=== PATIENT | male | born 1950 | race Caucasian/White ===

== ENCOUNTER 2022-05-01 21:25 | Observation (INO) ==
[2022-05-01] MEDS ORDERED: ONDANSETRON INJ 2 MG/ML 2 ML VIAL IV STA (21:54)
[2022-05-01] MEDS ORDERED: MoRPHine SULFATE 4 MG/ML 1 ML CARP\\VIAL IV STA (21:54)
[2022-05-01 22:21] LABS: Basophils # (auto) 0.05 K/uL (0-0.2); Basophils % (auto) 0.5 %; Eosinophils # (auto) 0.08 K/uL (0-0.50); Eosinophils % (auto) 0.8 %; Hematocrit (blood only) 40.2 % (40.1-51.0); Immature Granulocytes # (auto) 0.03 K/uL (0.00-0.02); Immature Granulocytes % (auto) 0.3 %; Lymphocytes # (auto) 1.42 K/uL (1.2-3.4); Mean Corpuscular Hemoglobin 31.3 pg (25.0-34.0); Mean Corpuscular Hgb Conc 34.8 g/dL (32.0-36.0); Mean Corpuscular Volume 89.9 fL (80.0-100.0); Mean Platelet Volume 12.1 fL (9.4-12.4); Monocytes # (auto) 0.91 K/uL (0.24-0.82); Monocytes % (auto) 9.6 %; Neutrophils # (auto) 6.98 K/uL (1.4-6.5); Neutrophils % (auto) 73.8 %; Platelet Count 167 K/uL (130-400); RDW Coefficient of Variation 12.9 % (11.5-14.5); RDW Standard Deviation 42.6 fL (36.4-46.3); Red Blood Count 4.47 M/uL (4.63-6.08); White Blood Count 9.47 K/ul (4.8-10.8)
[2022-05-01 22:40] LABS: Albumin Globulin Ratio 1.5 (0.9-2); Albumin Level 4.2 gm/dl (3.4-5.0); BUN Creatinine Ratio 13.5 (10-20); Bilirubin,Total 0.4 mg/dl (0.2-1.0); Calcium 9.2 mg/dl (8.5-10.1); Creatinine Clr Calc Pharmacy 81.1 ml/min; Est GFR (African American) 78.1 ml/min; Est GFR (Non-African American) 67.4 ml/min; Globulin 2.8 gm/dl (2.5-4.0); Potassium 3.9 mmol/L (3.5-5.1)
[2022-05-01 22:46] LABS: Troponin I High Sensitivity 18.3 pg/ml (0-20)
--- NOTE | 2022-05-01 23:16 | Emergency Department Note ---
History of Present Illness General Chief complaint: Rib Injury/Pain Stated complaint: FLANK PAIN Time Seen by Provider: 05/01/22 21:37 History of Present Illness Maximum Pain Intensity: 7 This 71-year-old presents to the ER complaining of right-sided chest pain after working on his truck today Location: Right side of chest Quality: Discomfort Severity: Moderate Duration: Today Timing: Started after working on his truck Context: Pain persisted and patient came in Modifying factors: better with rest; worse with activity Patient denies direct trauma to the area, fever, chills, vomiting, diarrhea, diaphoresis, radiating pain. Home Medications Medication Instructions Recorded Confirmed Type acetaminophen 650 mg 1,300 mg PO BID 05/01/22 05/01/22 History tablet,extended release (Tylenol Arthritis Pain) citalopram 40 mg tablet (Celexa) 40 mg PO DAILY 05/01/22 05/01/22 History ezetimibe 10 mg tablet 10 mg PO DAILY 05/01/22 05/01/22 History gabapentin 300 mg capsule 300 mg PO BID 05/01/22 05/01/22 History glipizide 10 mg tablet, extended 10 mg PO DAILY 05/01/22 05/01/22 History release 24 hr glipizide 2.5 mg tablet, extended 2.5 mg PO DAILY 05/01/22 05/01/22 History release 24 hr lidocaine 5 % topical patch 1 - 2 patch topical DAILY 05/01/22 05/01/22 History lisinopril 10 mg tablet 10 mg PO DAILY 05/01/22 05/01/22 History metformin 500 mg tablet 1,000 mg PO BID 05/01/22 05/01/22 History mirtazapine 30 mg tablet 30 mg PO HS 05/01/22 05/01/22 History multivitamin 1 tab PO DAILY 05/01/22 05/01/22 History omeprazole 40 mg capsule,delayed 40 mg PO DAILYBB 05/01/22 05/01/22 History release pioglitazone 30 mg tablet (Actos) 30 mg PO DAILY 05/01/22 05/01/22 History Allergies Allergy/AdvReac Type Severity Reaction Status Date / Time niacin Allergy Unknown UNKNOWN Verified 05/01/22 23:36 Yqkzdiz-[id number]-[id number] Reductase AdvReac Intermediate MUSCLE Verified 05/01/22 23:36 Inhibitor ACHES AND [Zxmdyzb-Fuy-Jea Reductase WEAKNESS Inhibitor] Past Med/Surg History Medical History Diabetes Surgical History History of back surgery Social History Smoking Status: Former smoker Preferred Language: Kinyarwanda Feels Safe at Home: Yes Review of Systems A total of 10 systems reviewed and were otherwise negative Physical Exam Vital Signs Vital Signs - 24 hr 05/01/22 21:31 05/01/22 21:46 05/01/22 22:11 Temperature 37.3 C Temperature Source Temporal Artery Scan Pulse Rate 104 H Pulse Rate from SpO2 Sensor Respiratory Rate 20 20 Respiratory Effort / Characteristics Non-Labored Spontaneous Respiratory Depth Normal Normal Blood Pressure 170/95 H Blood Pressure Mean 120 Pulse Oximetry 94 98 Oxygen Delivery Method Room Air Room Air Sepsis New/Unexplained Change in Mental Status N/A Sepsis Action Taken by Nursing No Action Required 05/01/22 22:05 05/01/22 22:30 05/01/22 23:00 Temperature Temperature Source Pulse Rate 93 H 95 H 94 H Pulse Rate from SpO2 Sensor 94 H 96 H 94 H Respiratory Rate 24 24 25 H Respiratory Effort / Characteristics Respiratory Depth Blood Pressure Blood Pressure Mean Pulse Oximetry 96 94 94 Oxygen Delivery Method Sepsis New/Unexplained Change in Mental Status Sepsis Action Taken by Nursing 05/01/22 23:30 05/02/22 00:00 05/02/22 00:10 Temperature Temperature Source Pulse Rate 89 84 84 Pulse Rate from SpO2 Sensor 89 84 84 Respiratory Rate 22 21 22 Respiratory Effort / Characteristics Respiratory Depth Blood Pressure 155/90 H Blood Pressure Mean 111 Pulse Oximetry 93 92 92 Oxygen Delivery Method Sepsis New/Unexplained Change in Mental Status Sepsis Action Taken by Nursing 05/02/22 00:20 05/02/22 00:30 05/02/22 00:40 Temperature Temperature Source Pulse Rate 84 85 85 Pulse Rate from SpO2 Sensor 84 85 85 Respiratory Rate 18 18 18 Respiratory Effort / Characteristics Respiratory Depth Blood Pressure Blood Pressure Mean Pulse Oximetry 91 91 92 Oxygen Delivery Method Sepsis New/Unexplained Change in Mental Status Sepsis Action Taken by Nursing 05/02/22 00:50 05/02/22 01:00 05/02/22 01:10 Temperature Temperature Source Pulse Rate 85 84 84 Pulse Rate from SpO2 Sensor 85 84 84 Respiratory Rate 18 19 17 Respiratory Effort / Characteristics Respiratory Depth Blood Pressure 147/87 H Blood Pressure Mean 107 Pulse Oximetry 93 93 93 Oxygen Delivery Method Sepsis New/Unexplained Change in Mental Status Sepsis Action Taken by Nursing VITALS: Vitals are noted on the nurse's note and reviewed by myself. Vital signs reviewed. GENERAL: Pleasant gentleman who appears in pain with lidocaine patches to the area, in no acute distress, nondiaphoretic, well-developed well-nourished. SKIN: The skin was without rashes, erythema, edema, or bruising. There is no tenting of the skin. Capillary reflex less than 2 seconds. HEAD: Normocephalic atraumatic. EARS: External auditory canals clear, EYES: Pupils equal round and reactive to light and accommodation. Conjunctivae without injection, sclerae without icterus. Extraocular movements intact. NOSE: Patent, turbinates without inflammation or discharge. MOUTH: Mucous membranes moist. Pharynx without erythema or exudate. Uvula midline. Airway patent. Tongue does not deviate. NECK: Supple without nuchal rigidity. No lymphadenopathy. No thyromegaly. Cervical spine is nontender. No JVD. HEART: Regular rate and rhythm LUNGS: Clear to auscultation bilaterally without wheezes, rales or rhonchi. No retractions or accessory muscle use. ABDOMEN: Positive bowel sounds x 4. Normal tympanic percussion. Soft, tender right upper quadrant,, without masses or organomegaly. No guarding or rebound tenderness. No CVA tenderness MUSCULOSKELETAL: No muscle atrophy, erythema, noted. NEURO: Patient was alert and oriented to person place and time. Normal sensation to light and sharp touch. No focal neurological deficits. Course Administered Medications Discontinued Medications Ioversol (Optiray 320 125ml) 125 ml IV ONCE ONE Stop: 05/02/22 00:26 Last Admin: 05/02/22 00:25 Dose: 118 ml Documented By: BERT Morphine Sulfate (Morphine Sulfate 4 Mg/Ml 1 Ml Carp\Vial) 4 mg IV NOW STA Stop: 05/01/22 21:55 Last Admin: 05/01/22 22:16 Dose: 4 mg Documented By: CHELA Morphine Sulfate (Morphine Sulfate 4 Mg/Ml 1 Ml Carp\Vial) 4 mg IV NOW STA Stop: 05/02/22 00:05 Last Admin: 05/02/22 00:11 Dose: 4 mg Documented By: CHELA Ondansetron HCl (Ondansetron Inj 2 Mg/Ml 2 Ml Vial) 4 mg IV NOW STA Stop: 05/01/22 21:55 Last Admin: 05/01/22 22:16 Dose: 4 mg Documented By: CHELA Medical Decision Making Medical Records Attestation: I reviewed the patient's medical records. Home Medications Current Medication List: was personally reviewed by me Laboratory Data Attestation: I reviewed the patient's lab results. Result diagrams: 05/01/22 22:06 05/01/22 22:06 Lab Results 05/01/22 05/01/22 05/01/22 Range/Units 22:06 22:06 22:06 WBC 9.47 (4.8-10.8) K/ul RBC 4.47 L (4.63-6.08) M/uL Hgb 14.0 (14.0-18.0) g/dl Hct 40.2 (40.1-51.0) % MCV 89.9 (80.0-100.0) fL MCH 31.3 (25.0-34.0) pg MCHC 34.8 (32.0-36.0) g/dL RDW Std Deviation 42.6 (36.4-46.3) fL RDW Coeff of Aditi 12.9 (11.5-14.5) % Plt Count 167 (130-400) K/uL MPV 12.1 (9.4-12.4) fL Immature Gran % (Auto) 0.3 % Neut % (Auto) 73.8 % Lymph % (Auto) 15.0 % [place] % (Auto) 9.6 % Eos % (Auto) 0.8 % Baso % (Auto) 0.5 % Neut # (Auto) 6.98 H (1.4-6.5) K/uL Lymph # (Auto) 1.42 (1.2-3.4) K/uL [place] # (Auto) 0.91 H (0.24-0.82) K/uL Eos # (Auto) 0.08 (0-0.50) K/uL Baso # (Auto) 0.05 (0-0.2) K/uL Immature Gran # (Auto) 0.03 H (0.00-0.02) K/uL PT (9.0-12.0) Seconds INR (0.9-1.1) APTT (21.0-31.0) Seconds PTT Ratio Sodium 134 L (136-145) mmol/L Potassium 3.9 (3.5-5.1) mmol/L Chloride 102 (98-107) mmol/L Carbon Dioxide 22 (21-32) mmol/L Anion Gap 10 (3-11) BUN 15 (6-23) mg/dl Creatinine 1.11 (0.6-1.4) mg/dl Est Cr Clr Drug Dosing 81.1 ml/min Est GFR ( Amer) 78.1 ml/min Est GFR (Non-Af Amer) 67.4 ml/min BUN/Creatinine Ratio 13.5 (10-20) Glucose 262 H (70-99(Fasting)) mg/dl Calcium 9.2 (8.5-10.1) mg/dl Magnesium (1.7-2.4) mg/dl Total Bilirubin 0.4 (0.2-1.0) mg/dl AST 17 (13-39) U/L ALT 23 (7-52) U/L Alkaline Phosphatase 60 (34-104) U/L Total Creatine Kinase 60 (30-223) U/L Troponin I High Sens 18.3 Cancelled (0-20) pg/ml Total Protein 7.0 (6.0-8.3) gm/dl Albumin 4.2 (3.4-5.0) gm/dl Globulin 2.8 (2.5-4.0) gm/dl Albumin/Globulin Ratio 1.5 (0.9-2) Lipase 33 (11-82) U/L SARS-CoV-2, RNA, NAAT (NEGATIVE) 05/01/22 05/02/22 05/02/22 Range/Units 22:06 00:51 00:52 WBC (4.8-10.8) K/ul RBC (4.63-6.08) M/uL Hgb (14.0-18.0) g/dl Hct (40.1-51.0) % MCV (80.0-100.0) fL MCH (25.0-34.0) pg MCHC (32.0-36.0) g/dL RDW Std Deviation (36.4-46.3) fL RDW Coeff of Aditi (11.5-14.5) % Plt Count (130-400) K/uL MPV (9.4-12.4) fL Immature Gran % (Auto) % Neut % (Auto) % Lymph % (Auto) % [place] % (Auto) % Eos % (Auto) % Baso % (Auto) % Neut # (Auto) (1.4-6.5) K/uL Lymph # (Auto) (1.2-3.4) K/uL [place] # (Auto) (0.24-0.82) K/uL Eos # (Auto) (0-0.50) K/uL Baso # (Auto) (0-0.2) K/uL Immature Gran # (Auto) (0.00-0.02) K/uL PT 10.0 (9.0-12.0) Seconds INR 0.9 (0.9-1.1) APTT 26.7 (21.0-31.0) Seconds PTT Ratio 1.0 Sodium (136-145) mmol/L Potassium (3.5-5.1) mmol/L Chloride (98-107) mmol/L Carbon Dioxide (21-32) mmol/L Anion Gap (3-11) BUN (6-23) mg/dl Creatinine (0.6-1.4) mg/dl Est Cr Clr Drug Dosing ml/min Est GFR ( Amer) ml/min Est GFR (Non-Af Amer) ml/min BUN/Creatinine Ratio (10-20) Glucose (70-99(Fasting)) mg/dl Calcium (8.5-10.1) mg/dl Magnesium 1.4 L (1.7-2.4) mg/dl Total Bilirubin (0.2-1.0) mg/dl AST (13-39) U/L ALT (7-52) U/L Alkaline Phosphatase (34-104) U/L Total Creatine Kinase (30-223) U/L Troponin I High Sens (0-20) pg/ml Total Protein (6.0-8.3) gm/dl Albumin (3.4-5.0) gm/dl Globulin (2.5-4.0) gm/dl Albumin/Globulin Ratio (0.9-2) Lipase (11-82) U/L SARS-CoV-2, RNA, NAAT NEGATIVE (NEGATIVE) Imaging Data Attestation: I personally reviewed and interpreted this imaging study as foll ows: MDM Narrative Prior records/ancillary studies reviewed. Triage Nursing notes reviewed. Additional history obtained from family The patient's history was concerning for chest pain. Differential diagnosis: Etiologies such as cardiac ischemia, aortic dissection, pulmonary embolism, pneumonia, pneumothorax, musculoskeletal, infections, pericarditis, myocarditis, esophageal rupture, gastrointestinal, as well as others were entertained. Physical examination: As above. ER treatment provided: An order was placed for continuous cardiac monitoring. The monitor shows a rate of 60-150 with a sinus rhythm. Morphine and Zofran On reassessment the patient felt better. Diagnostic interpretation by me: The electrocardiogram was negative for pathologic change. EKG ordered for chest pain EKG: Normal sinus, normal intervals, no acute ST-T wave changes. Impression normal sinus rhythm interpreted by myself I think arrhythmia is unlikely. EKG shows normal sinus rhythm with no interval abnormalities such as QT prolongation or WPW. There are no findings to suggest Brugada syndrome. Cardiac monitoring in the emergency department reveals no tachycardic or bradycardic dysrhythmia. Hypertrophic cardiomyopathy was considered but there are no clear historical elements pointing toward this. EKG is not suggestive. The QRS voltage is not extremely large and there are no suggestive Q waves. The labs revealed negative troponin Imaging studies: Preliminary Findings Only See Final Report For Complete Findings CTA CHEST: Multifocal acute segmental pulmonary emboli within the bilateral lower lobes, middle lobe, and left upper lobe. RV to LV ratio less than 1. No evidence of right heart strain. Pulmonary infarct within the right middle lobe. Trace right pleural effusion. Atelectasis in the lower lobes. Subacute appearing right eighth anterior rib fracture. Radiologist: Sergio Guzman MD HEART SCORE: Hx: high/mod/low suspicion: 0 ECG: ST depression/nonspecific changes/normal: 0 Age: Greater than 65/45-64/less than 45: 2 Risk factors: (Hypertension, hyperlipidemia, diabetes, coronary disease, tobacco use, cocaine use): 2 Troponin: Greater than 2 times normal limits/1-2 times normal limits/normal: 0 Total: 4 PESI Score Age: 71 Male gender: 10 History of cancer: 0 Heart failure: 0 Chronic lung disease: 0 Pulse =110/min: 0 Systolic blood pressure <100 mmH Respiratory rate =30/min: 0 Temperature <36 Celcius: 0 Altered mental status: 0 Arterial oxygen saturation <90 percent: 0 Total: 79 Class I Low risk <66 Class II 66 to 85 Class III High risk 86 to 105 Class IV 106 to 125 Class V >125 Consultation: A consultation was placed with the hospitalist. The case was discussed and diagnostics were reviewed. The patient was evaluated in the ER for further treatment. Exam and history seem consistent with PEs. Medicine is consulted. He will be admitted to the medical service. Admitting doctor will write for the heparin per his request. By the evaluation outlined above emergent etiologies such as cardiac ischemia, aortic dissection, pneumonia, pneumothorax, infections, pericarditis, myocarditis, gastrointestinal, as well as others were deemed relatively unlikely. The pt informed about the findings as listed above. All questions were answered and pleased with the treatment. The chart was completed utilizing [employer] Speech voice recognition software. Grammatical errors, random word insertions, pronoun errors, and incomplete sentences are an occassional consequence of this system due to software limitations, ambient noise, and hardware issues. Any formal questions or concerns about the content, text, or information contained within the body of this dictation should be directly addressed to the physician design assistant for clarification. Impression & Plan Pulmonary embolism Discharge Plan Visit Data Chief Complaint: Rib Injury/Pain Stated Complaint: FLANK PAIN ED Provider: Félix Garcia ED Midlevel Provider: Radha Westfall Discharge Problem: Pulmonary embolism Patient Disposition: Admitted As Inpatient Condition: Good Forms Stand Alone Forms: My [facility] SocialMade[employer] Prescriptions Prescriptions: No Action multivitamin Tablet 1 tab PO DAILY metformin 500 mg Tablet 1,000 mg PO BID citalopram [Celexa] 40 mg Tablet 40 mg PO DAILY glipizide 10 mg tablet extended release 24hr 10 mg PO DAILY Rx Instructions: TOTAL DOSE 12.5 MG--TAKES WITH 2.5 MG TAB. omeprazole 40 mg capsule,delayed release(DR/EC) 40 mg PO DAILYBB acetaminophen [Tylenol Arthritis Pain] 650 mg Tablet Extended Release 1,300 mg PO BID glipizide 2.5 mg tablet extended release 24 hr 2.5 mg PO DAILY Rx Instructions: TOTAL DOSE 12.5 MG--TAKES WITH 10 MG TAB. mirtazapine 30 mg tablet 30 mg PO HS lisinopril 10 mg tablet 10 mg PO DAILY lidocaine 5 % Adhesive Patch,Medicated 1 - 2 patch TOPICAL DAILY Rx Instructions: leave on most painful area for up to 12 hrs gabapentin 300 mg capsule 300 mg PO BID pioglitazone [Actos] 30 mg Tablet 30 mg PO DAILY ezetimibe 10 mg tablet 10 mg PO DAILY Referrals Referrals: Naina Alva DO [Primary Care Provider] -
[2022-05-02] MEDS ORDERED: MoRPHine SULFATE 4 MG/ML 1 ML CARP\\VIAL IV STA (00:04)
[2022-05-02] MEDS ORDERED: OPTIRAY 320 125ml IV ONE (00:25)
[2022-05-02 01:13] LABS: INR 0.9 (0.9-1.1); Partial Thromboplastin Time 26.7 Seconds (21.0-31.0)
--- NOTE | 2022-05-02 01:19 | History & Physical Report ---
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 Analgesia Basal insulin, ISS BG goal 1 10-1 40, carb count coverage DVT prophylaxis with IV heparin Full code Patient requesting update providers. Ms. Zahraa Lock, contact #[phone]. Text document was generated using [employer] voice recognition software. It may contain grammatical or spelling errors. Kindly contact undersigned for clarification of any documentation item in question. History of Present Illness Chief Complaint: Right-sided chest pain, shortness of breath Primary Care Provider: Naina Alva, History obtained from patient, family, and records. 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 Last confinement March 2018 for noncardiac chest pain. Patient experienced pleuritic right-sided chest pain with shortness of breath while working on his truck yesterday. No leg swelling. No recent prolonged periods of immobility/extended car/plane travel. No family history of blood clots. No unusual weight loss. Patient brought to the ER by . Medical History as above Surgical History : Shoulder surgery, knee surgery, vascular procedures, back surgery Family History : Heart disease, stroke, breast cancer Personal/Social history : Past tobacco abuse, occasional Et[employer] intake, [employer] coding [employer] Allergies Allergy/AdvReac Type Severity Reaction Status Date / Time niacin Allergy Unknown UNKNOWN Verified 05/01/22 23:36 Mpsitmn-JSA-KfW Reductase AdvReac Intermediate MUSCLE Verified 05/01/22 23:36 Inhibitor ACHES AND [Nrdyksq-Lyr-Udk Reductase WEAKNESS Inhibitor] Home Medications Medication Instructions Recorded Confirmed Type acetaminophen 650 mg 1,300 mg PO BID 05/01/22 05/01/22 History tablet,extended release (Tylenol Arthritis Pain) citalopram 40 mg tablet (Celexa) 40 mg PO DAILY 05/01/22 05/01/22 History ezetimibe 10 mg tablet 10 mg PO DAILY 05/01/22 05/01/22 History gabapentin 300 mg capsule 300 mg PO BID 05/01/22 05/01/22 History glipizide 10 mg tablet, extended 10 mg PO DAILY 05/01/22 05/01/22 History release 24 hr glipizide 2.5 mg tablet, extended 2.5 mg PO DAILY 05/01/22 05/01/22 History release 24 hr lidocaine 5 % topical patch 1 - 2 patch topical DAILY 05/01/22 05/01/22 History lisinopril 10 mg tablet 10 mg PO DAILY 05/01/22 05/01/22 History metformin 500 mg tablet 1,000 mg PO BID 05/01/22 05/01/22 History mirtazapine 30 mg tablet 30 mg PO HS 05/01/22 05/01/22 History multivitamin 1 tab PO DAILY 05/01/22 05/01/22 History omeprazole 40 mg capsule,delayed 40 mg PO DAILYBB 05/01/22 05/01/22 History release pioglitazone 30 mg tablet (Actos) 30 mg PO DAILY 05/01/22 05/01/22 History Past Med/Surg History Medical History Diabetes Surgical History History of back surgery Social History Smoking Status: Former smoker Preferred Language: Wolof Feels Safe at Home: Yes Review of Systems Review of Systems: As per HPI, all other systems reviewed and negative Physical Exam Physical Exam: GENERAL: Comfortable, pleasant, obese, no respiratory distress SKIN: Normal color, warm HEENT: Alopecia, [place] palpebral conjunctivae, no ptosis, moist buccal mucosa NECK : Supple, short neck, no tenderness CHEST : Decreased breath sounds,, right chest wall tenderness HEART : RRR, no obvious murmurs ABDOMEN: Some distention, nontender EXTREMITIES : No LE swelling/tenderness, no other conspicuous deformities noted NEUROLOGIC : Coherent, no facial asymmetry, no other gross focality Results & Data Results & Data ([facility]) Vital Signs (Past 12 Hours) Vital Signs Temp Pulse Resp BP Pulse Ox O2 Del Method 05/02/22 01:10 84 17 147/87 H 93 05/02/22 01:00 84 19 93 05/02/22 00:50 85 18 93 05/02/22 00:40 85 18 92 05/02/22 00:30 85 18 91 05/02/22 00:20 84 18 91 05/02/22 00:10 84 22 92 05/02/22 00:00 84 21 155/90 H 92 05/01/22 23:30 89 22 93 05/01/22 23:00 94 H 25 H 94 05/01/22 22:30 95 H 24 94 05/01/22 22:05 93 H 24 96 05/01/22 22:11 98 Room Air 05/01/22 21:46 20 05/01/22 21:31 37.3 C 104 H 20 170/95 H 94 Room Air Laboratory Results Laboratory Results WBC 9.47 K/ul (4.8-10.8) 05/01/22 22:06 RBC 4.47 M/uL (4.63-6.08) L 05/01/22 22:06 Hgb 14.0 g/dl (14.0-18.0) 05/01/22 22:06 Hct 40.2 % (40.1-51.0) 05/01/22 22:06 MCV 89.9 fL (80.0-100.0) 05/01/22 22:06 MCH 31.3 pg (25.0-34.0) 05/01/22 22:06 MCHC 34.8 g/dL (32.0-36.0) 05/01/22 22:06 RDW Std Deviation 42.6 fL (36.4-46.3) 05/01/22 22:06 RDW Coeff of Aditi 12.9 % (11.5-14.5) 05/01/22 22:06 Plt Count 167 K/uL (130-400) 05/01/22 22:06 MPV 12.1 fL (9.4-12.4) 05/01/22 22:06 Immature Gran % (Auto) 0.3 % 05/01/22 22:06 Neut % (Auto) 73.8 % 05/01/22 22:06 Lymph % (Auto) 15.0 % 05/01/22 22:06 [place] % (Auto) 9.6 % 05/01/22 22:06 Eos % (Auto) 0.8 % 05/01/22 22:06 Baso % (Auto) 0.5 % 05/01/22 22:06 Neut # (Auto) 6.98 K/uL (1.4-6.5) H 05/01/22 22:06 Lymph # (Auto) 1.42 K/uL (1.2-3.4) 05/01/22 22:06 [place] # (Auto) 0.91 K/uL (0.24-0.82) H 05/01/22 22:06 Eos # (Auto) 0.08 K/uL (0-0.50) 05/01/22 22:06 Baso # (Auto) 0.05 K/uL (0-0.2) 05/01/22 22:06 Immature Gran # (Auto) 0.03 K/uL (0.00-0.02) H 05/01/22 22:06 PT 10.0 Seconds (9.0-12.0) 05/02/22 00:51 INR 0.9 (0.9-1.1) 05/02/22 00:51 APTT 26.7 Seconds (21.0-31.0) 05/02/22 00:51 PTT Ratio 1.0 05/02/22 00:51 Sodium 134 mmol/L (136-145) L 05/01/22 22:06 Potassium 3.9 mmol/L (3.5-5.1) 05/01/22 22:06 Chloride 102 mmol/L (98-107) 05/01/22 22:06 Carbon Dioxide 22 mmol/L (21-32) 05/01/22 22:06 Anion Gap 10 (3-11) 05/01/22 22:06 BUN 15 mg/dl (6-23) 05/01/22 22:06 Creatinine 1.11 mg/dl (0.6-1.4) 05/01/22 22:06 Est Cr Clr Drug Dosing 81.1 ml/min 05/01/22 22:06 Est GFR ( Amer) 78.1 ml/min 05/01/22 22:06 Est GFR (Non-Af Amer) 67.4 ml/min 05/01/22 22:06 BUN/Creatinine Ratio 13.5 (10-20) 05/01/22 22:06 Glucose 262 mg/dl (70-99(Fasting)) H 05/01/22 22:06 Calcium 9.2 mg/dl (8.5-10.1) 05/01/22 22:06 Total Bilirubin 0.4 mg/dl (0.2-1.0) 05/01/22 22:06 AST 17 U/L (13-39) 05/01/22 22:06 ALT 23 U/L (7-52) 05/01/22 22:06 Alkaline Phosphatase 60 U/L (34-104) 05/01/22 22:06 Total Creatine Kinase 60 U/L (30-223) 05/01/22 22:06 Troponin I High Sens 18.3 pg/ml (0-20) 05/01/22 22:06 Troponin I High Sens Cancelled 05/01/22 22:06 Total Protein 7.0 gm/dl (6.0-8.3) 05/01/22 22:06 Albumin 4.2 gm/dl (3.4-5.0) 05/01/22 22:06 Globulin 2.8 gm/dl (2.5-4.0) 05/01/22 22:06 Albumin/Globulin Ratio 1.5 (0.9-2) 05/01/22 22:06 Lipase 33 U/L (11-82) 05/01/22 22:06 SARS-CoV-2, RNA, NAAT NEGATIVE (NEGATIVE) 05/02/22 00:[address] chest initial read: Multifocal acute segmental pulmonary emboli within the bilateral lower lobes, middle lobe, and left upper lobe. RV to LV ratio less than 1. No evidence of right heart strain. Pulmonary infarct within the right middle lobe. Trace right pleural effusion. Atelectasis in the lower lobes. Subacute appearing right eighth anterior rib fracture. EKG as per my interpretation : Rate 95, NSR, normal axis, T wave abnormality septal leads
[2022-05-02] MEDS ORDERED: Heparin IV Adult Wt-Based Standard *NO* Bolus Protocol IV SCH (01:41)
[2022-05-02] MEDS ORDERED: LANTUS PER UNIT CHARGE SQ STA (02:01)
[2022-05-02] MEDS ORDERED: LACTATED RINGER'S 1,000 ML IV ONE (02:01)
[2022-05-02] MEDS: MAGNESIUM SULFATE / D5W 1 GM/100 ML BAG IV SCH ×2 (02:47→03:45)
[2022-05-02] MEDS: HEPARIN SODIUM/DEXTROSE 25,000 UNITS/500 ML BAG IV SCH ×2 (03:41→19:38)
--- NOTE | 2022-05-02 06:51 | Ultrasound Report ---
BILATERAL LOWER EXTREMITY VENOUS DOPPLER CLINICAL HISTORY: Pulmonary emboli. COMPARISON STUDY: Left lower extremity venous Doppler ultrasound October 22, 2013. TECHNIQUE: Sonography of the deep venous system of the bilateral lower extremities was performed. Co mpression and augmentation were evaluated. FINDINGS: There is no deep venous thrombus within the right lower extremity. Occlusive deep venous th rombus is noted within one of 2 paired left popliteal veins. Nonocclusive thrombus within the left po sterior tibial vein. IMPRESSION: Deep venous thrombus within the left popliteal and posterior tibial veins. ACT 112: Negative or not required by law. Electronically signed by: Kian Koenig M.D. 05/02/2022 6:50 AM
[2022-05-02] MEDS ORDERED: LIDOCAINE 5% 1 PATCH TD SCH ×3 (09:00→21:30)
[2022-05-02] MEDS ORDERED: PROMETHAZINE HCL 12.5 MG in SODIUM CHLORIDE 0.9% 50 ML IV PRN (09:31)
[2022-05-02] MEDS ORDERED: ACETAMINOPHEN 325 MG TAB PO PRN (09:31)
[2022-05-02] MEDS ORDERED: oxyCODONE HCL IR 5 MG TAB (IMMEDIATE RELEASE) PO PRN (09:31)
[2022-05-02] MEDS ORDERED: GLUCOSE 40% GEL 15 GM TUBE PO PRN (09:31)
[2022-05-02] MEDS ORDERED: GLUCAGON FOR INJ 1 MG VIAL SQ PRN (09:31)
[2022-05-02] MEDS ORDERED: CARBOHYDRATES FOR HYPOGLYCEMIA PO PRN (09:31)
[2022-05-02] MEDS ORDERED: DEXTROSE 50% 50 ML SYRINGE IV PRN (09:31)
[2022-05-02] MEDS ORDERED: GLUCOSE 10 TAB/TUBE PO PRN (09:31)
[2022-05-02] MEDS ORDERED: MoRPHine SULFATE 4 MG/ML 1 ML CARP\\VIAL IV PRN (09:31)
--- NOTE | 2022-05-02 09:43 | CT Scan Report ---
CT ANGIOGRAPHY OF THE CHEST, PULMONARY EMBOLUS PROTOCOL CLINICAL HISTORY: Right-sided chest pain. Evaluate for pulmonary embolus. COMPARISON STUDY: Chest CT April 15, 2018. Chest radiograph performed earlier today. TECHNIQUE: Following IV administration of 118 mL of Optiray, helical axial images of the chest were o btained utilizing the pulmonary embolus protocol. Maximal intensity projections and sagittal and cor onal reformats were viewed on an independent 3D workstation. IV contrast was administered without co mplication. Automated exposure control was utilized for the study. A dose lowering technique was ut ilized adhering to the principles of ALARA. CT DOSE: 818.31 mGy.cm FINDINGS: Numerous segmental pulmonary emboli are noted within the lungs. A 5.7 x 2.8 cm groundglass right middle lobe opacity represents a pulmonary infarct. There is a trace right pleural effusion. N o CT evidence for right heart strain. Mild cardiomegaly is noted with moderate coronary artery calcif ication. No suspicious pulmonary nodules are present. No pericardial effusion is present. There is no pneumothorax. Hepatic steatosis. IMPRESSION: 1. Numerous segmental pulmonary emboli. 2. 5.7 x 2.8 cm right middle lobe infarct. Trace right pleural effusion. ACT 112: Negative or not required by law. Electronically signed by: Kian Koenig M.D. 05/02/2022 9:10 AM
--- NOTE | 2022-05-02 09:43 | XRay Report ---
XR chest 1V portable HISTORY: Atypical Chest Pain COMPARISON: Chest CTA 04/25/2018. FINDINGS: No pneumothorax. No pleural effusions. There are low lung volumes. The cardiac silhouette i s mildly enlarged. There is mild central pulmonary vascular congestion without overt edema. No focal lung consolidations to suggest pneumonia. Left basilar linear densities favor subsegmental atelectasi s. IMPRESSION: Cardiomegaly with mild central pulmonary vascular congestion without overt edema. ACT 112: Negative or not required by law. Electronically signed by: Adán Bob M.D. 05/02/2022 9:17 AM
[2022-05-02] MEDS: INSULIN ASPART PER UNIT SC SCH ×4 (10:46→20:30)
[2022-05-02] MEDS: CITALOPRAM 40 MG TAB PO SCH (10:55)
[2022-05-02] MEDS: EZETIMIBE 10 MG TABLET PO SCH (10:55)
[2022-05-02] MEDS: GABAPENTIN 300 MG CAP PO SCH ×2 (10:56→20:26)
[2022-05-02] MEDS: PANTOprazole 40 MG TAB PO SCH (10:56)
[2022-05-02] MEDS: MULTIVITAMIN TAB PO SCH (10:56)
[2022-05-02] MEDS: lisinopril 10 MG TAB PO SCH (10:56)
--- NOTE | 2022-05-02 11:50 | Electrocardiogram Report ---
Test Reason : Blood Pressure : / mmHG Vent. Rate : 093 BPM Atrial Rate : 093 BPM P-R Int : 152 ms QRS Dur : 082 ms QT Int : 340 ms P-R-T Axes : 023 023 017 degrees QTc Int : 422 ms Normal sinus rhythm Normal ECG When compared with ECG of 26-APR-2018 07:42, Vent. rate has increased BY 31 BPM Confirmed by Jacob Berger ([id number]) on 05/02/2022 11:49:56 AM Referred By: REFERRED SELF Confirmed By:Macario Berger
[2022-05-02 14:34] LABS: Partial Thromboplastin Ratio 1.6; Partial Thromboplastin Time 42.7 Seconds (21.0-31.0)
--- NOTE | 2022-05-02 16:30 | Communication Note ---
Date of Service: May 02, 2022 Patient seen and examined at bedside in presence of and son. He is here with LLE DVT along with numerous segmental PE and right pulmonary infarction and came with right chest pain which is improving. Hypercoag panel is pending. He is hemodynamically stable, saturating well in room air and is not hypoxic or dyspneic. States he has not had much activities recently due to left hip pain and is scheduled to see a [facility] orthopedic doctor. His DVT/PE is likely provoked by his relative immobility due to hip pain. He has been started on heparin drip. Discussed extensively about DOACs and coumadin. He checked with his pharmacy- xarelto is expensive but he would still like to go for it due to ease. Discussed with our RN coordinator to find him some free and discount coupons. I did get a call from his [facility] pharmacy who suggested that the patient check the crime scene evidence technician website for crime scene evidence technician discount and bring it to the pharmacy for additional discount. This was relayed to the patient. - Continue heparin drip. will switch to xarelto from [facility]. Can likely be discharged in am - Please see H and P note for details for presentation.
[2022-05-02] MEDS ORDERED: traMADol HCL 50 MG TABLET PO PRN (17:09)
[2022-05-02] MEDS ORDERED: MIRTAZAPINE TAB 15 MG TAB PO SCH (21:00)
[2022-05-02] MEDS: RIVAROXABAN 15 MG TAB PO SCH (21:06)
[2022-05-02] MEDS ORDERED: LIDOCAINE 5% 1 PATCH TD STA (21:15)
[2022-05-03] MEDS: PANTOprazole 40 MG TAB PO SCH (05:31)
[2022-05-03 05:52] LABS: Basophils # (auto) 0.06 K/uL (0-0.2); Basophils % (auto) 0.8 %; Eosinophils # (auto) 0.14 K/uL (0-0.50); Hematocrit (blood only) 38.2 % (40.1-51.0); Hemoglobin 13.1 g/dl (14.0-18.0); Immature Granulocytes # (auto) 0.01 K/uL (0.00-0.02); Immature Granulocytes % (auto) 0.1 %; Lymphocytes # (auto) 1.54 K/uL (1.2-3.4); Lymphocytes % (auto) 21.6 %; Mean Corpuscular Hemoglobin 30.7 pg (25.0-34.0); Mean Corpuscular Hgb Conc 34.3 g/dL (32.0-36.0); Mean Corpuscular Volume 89.5 fL (80.0-100.0); Mean Platelet Volume 12.2 fL (9.4-12.4); Monocytes # (auto) 0.78 K/uL (0.24-0.82); Monocytes % (auto) 10.9 %; Neutrophils % (auto) 64.6 %; Platelet Count 151 K/uL (130-400); RDW Coefficient of Variation 12.9 % (11.5-14.5); RDW Standard Deviation 42.3 fL (36.4-46.3); Red Blood Count 4.27 M/uL (4.63-6.08); White Blood Count 7.13 K/ul (4.8-10.8)
[2022-05-03 06:03] LABS: INR 1.1 (0.9-1.1); Partial Thromboplastin Ratio 1.2; Partial Thromboplastin Time 32.8 Seconds (21.0-31.0); Prothrombin Time 11.4 Seconds (9.0-12.0)
[2022-05-03 06:22] LABS: BUN Creatinine Ratio 12.3 (10-20); Calcium 8.9 mg/dl (8.5-10.1); Creatinine Clr Calc Pharmacy 78.8 ml/min; Est GFR (African American) 75.6 ml/min; Est GFR (Non-African American) 65.3 ml/min; Magnesium 1.6 mg/dl (1.7-2.4); Potassium 3.9 mmol/L (3.5-5.1)
[2022-05-03] MEDS: INSULIN ASPART PER UNIT SC SCH (08:25)
[2022-05-03] MEDS: MULTIVITAMIN TAB PO SCH (08:25)
[2022-05-03] MEDS: lisinopril 10 MG TAB PO SCH (08:25)
[2022-05-03] MEDS: EZETIMIBE 10 MG TABLET PO SCH (08:25)
[2022-05-03] MEDS: CITALOPRAM 40 MG TAB PO SCH (08:25)
[2022-05-03] MEDS: RIVAROXABAN 15 MG TAB PO SCH (08:25)
[2022-05-03] MEDS: GABAPENTIN 300 MG CAP PO SCH (08:26)
[2022-05-03] MEDS ORDERED: LANTUS PER UNIT CHARGE SQ SCH (09:00)
--- NOTE | 2022-05-03 10:29 | Discharge Summary ---
Date of Service May 03, 2022 Admission HPI Per Admitting Provider History obtained from patient, family, and records. 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 Last confinement March 2018 for noncardiac chest pain. Patient experienced pleuritic right-sided chest pain with shortness of breath while working on his truck yesterday. No leg swelling. No recent prolonged periods of immobility/extended car/plane travel. No family history of blood clots. No unusual weight loss. Patient brought to the ER by . Medical History as above Surgical History : Shoulder surgery, knee surgery, vascular procedures, back surgery Family History : Heart disease, stroke, breast cancer Personal/Social history : Past tobacco abuse, occasional EtOH intake, [employer] Admission Exam Per Admitting Provider GENERAL: Comfortable, pleasant, obese, no respiratory distress SKIN: Normal color, warm HEENT: Alopecia, Noel palpebral conjunctivae, no ptosis, moist buccal mucosa NECK : Supple, short neck, no tenderness CHEST : Decreased breath sounds,, right chest wall tenderness HEART : RRR, no obvious murmurs ABDOMEN: Some distention, nontender EXTREMITIES : No LE swelling/tenderness, no other conspicuous deformities noted NEUROLOGIC : Coherent, no facial asymmetry, no other gross focality Principal Diagnosis Pulmonary embolism Right middle lobe lung infarct Left leg deep venous thrombosis Discharge Exam Constitutional + well hydrated and + obese; no acute distress Eyes PERRL, conjunctivae normal, anicteric sclerae ENMT external ear and nose normal, oropharynx normal Respiratory normal respiratory effort, lungs clear to auscultation Cardiovascular Rate/Rhythm: regular rate and regular rhythm S1 S2 Gastrointestinal (Abdomen) normal bowel sounds, soft, nontender, no hepatosplenomegaly Musculoskeletal No pedal edema Neurologic PERRL, EOMI, accommodation nl, no face palsy, no dysarthria Psychiatric A+Ox3, euthymic affect Discharge Data Allergies Allergy/AdvReac Type Severity Reaction Status Date / Time niacin Allergy Unknown UNKNOWN Verified 05/01/22 23:36 Jvyqgze-KXL-DzF Reductase AdvReac Intermediate MUSCLE Verified 05/01/22 23:36 Inhibitor ACHES AND [Ppvyfwm-Jbz-Mzy Reductase WEAKNESS Inhibitor] Consultations 05/02/22 01:11 ED Decision to Admit Stat Ordered Studies 05/01/22 23:03 CT angio chest PE protocol Stat Numerous segmental pulmonary emboli are noted within the lungs. A 5.7 x 2.8 cm groundglass right middle lobe opacity represents a pulmonary infarct. There is a trace right pleural effusion. No CT evidence for right heart strain. Mild car diomegaly is noted with moderate coronary artery calcification. No suspicious pulmonary nodules are present. No pericardial effusion is present. There is no pneumothorax. Hepatic steatosis. IMPRESSION: 1. Numerous segmental pulmonary emboli. 2. 5.7 x 2.8 cm right middle lobe infarct. Trace right pleural effusion. 05/02/22 01:59 US venous doppler LE BI Routine There is no deep venous thrombus within the right lower extremity. Occlusive deep venous thrombus is noted within one of 2 paired left popliteal veins. Nonocclusive thrombus within the left posterior tibial vein. IMPRESSION: Deep venous thrombus within the left popliteal and posterior tibial veins. Hospital Course (1) Pulmonary embolism: Presented with right-sided chest pain. Evaluation showed left leg DVT, PE and right middle lobe lung infarct. Patient had reported reduced activity due to left hip pain and this scheduled to see orthopedic doctor outpatient. DVT PE currently provoked due to relative immobility from the hip pain. Patient was initially started on heparin drip and subsequently transitioned to Xarelto per patient's choice Chest pain due to lung infracts was controlled with Tylenol and tramadol. Patient remained on room air and does not require oxygen. Hypercoagulable work-up was pending at the time of discharge. Provided education regarding anticoagulation. Patient advised to follow-up with PCP. Will need anticoagulation for at least 3 to 6 months. Continue other home medications including antihypertensive, oral antidiabetic's Total Time Total Time Spent Total Time Spent (In Minutes): 40 Total Time Includes: Examination of the Patient, Discharge Planning and Medication Reconciliation Discharge Plan Discharge Items Patient Disposition: Home - Self-Care Reason For Visit: Right sided chest pain Discharge Diagnosis: Pulmonary embolism Right middle lobe lung infarct Left leg deep venous thrombosis Condition on Discharge: Good Activity: Resume your previous activity Non-emergency contact: Primary Care Provider Call non-emergency contact if: you have any medication questions and your symptoms worsen Follow-up/Referrals: Naina Alva DO [Primary Care Provider] - (Date & Time 05/05/2022 11:50 AM Provider Naina Alva DO Department Family Medicine [facility] ) Diet: Carb Consistent or DM2 and Heart Healthy Addtl Attending Provider Instructions: Mr Lock You came to the hospital due to right-sided chest pain and shortness of breath. You were evaluated and found to have blood clots in your lungs and blood clots in your left leg. You were started on blood thinners. You are being discharged on a blood thinner called Xarelto. You need to blow blood thinners for at least 3 to 6 months. It is important that you follow-up with your primary doctor as we discussed. Please only take the tramadol for pain not controlled by Tylenol. It is a pleasure taking care of you Pending Studies at Discharge: Yes (Hypercoagulable workup) Stand-Alone Forms: [facility] [employer], Smoking Cessation Medications and DC Order Prescriptions: New tramadol 50 mg Tablet 50 mg PO BID PRN (Reason: severe pain (scale score 7-10)) Qty: 4 0RF Xarelto DVT-PE Treat 30d Start 15 mg (42)- 20 mg (9) tablets,dose pack See Rx Instructions .ROUTE .COMPLEX Qty: 51 0RF Rx Instructions: take one-15 mg tablet twice daily for 21 days, then one-20 mg tablet once carlos ly; must take with meal/food Continued multivitamin Tablet 1 tab PO DAILY metformin 500 mg Tablet 1,000 mg PO BID citalopram [Celexa] 40 mg Tablet 40 mg PO DAILY glipizide 10 mg tablet extended release 24hr 10 mg PO DAILY Rx Instructions: TOTAL DOSE 12.5 MG--TAKES WITH 2.5 MG TAB. omeprazole 40 mg capsule,delayed release(DR/EC) 40 mg PO DAILYBB acetaminophen [Tylenol Arthritis Pain] 650 mg Tablet Extended Release 1,300 mg PO BID glipizide 2.5 mg tablet extended release 24 hr 2.5 mg PO DAILY Rx Instructions: TOTAL DOSE 12.5 MG--TAKES WITH 10 MG TAB. mirtazapine 30 mg tablet 30 mg PO HS lisinopril 10 mg tablet 10 mg PO DAILY lidocaine 5 % Adhesive Patch,Medicated 1 - 2 patch TOPICAL DAILY Rx Instructions: leave on most painful area for up to 12 hrs gabapentin 300 mg capsule 300 mg PO BID pioglitazone [Actos] 30 mg Tablet 30 mg PO DAILY ezetimibe 10 mg tablet 10 mg PO DAILY Discharge Orders: Discharge Order (Routine); Ordered 05/03/22 Ordered By: Estrella Rowland/Other Patient Handouts: Pulmonary Embolism, Pulmonary Embolism Dc Admission Data Admit Date/Time: 05/02/22 01:59 Attending Provider: Estrella Ling I. Admit Provider: Shankar King Primary Care Provider: Naina Alva Other Providers: Shankar King ; Don Sosa Other Interventions: Discharge Summary Assessment (RN) Last Done: 05/03/22 10:59
--- NOTE | 2022-05-03 19:50 | Communication Note ---
Date of Service: May 03, 2022 Code 44 attestation: 71-year-old male with significant past medical history as mentioned in H&P was admitted with provoked DVT and pulmonary embolism. He has been stable since admission and remained hemodynamically stable. He is chart, EKG and imaging studies reviewed. He was appropriately managed by the attending physician and was sent home today in stable condition. By [facility] guidelines, a determination that the admission or continued stay is not medically necessary has been made by a member of the UR committee and a physician for this hospital stay, therefore a Code 44 will be completed and the Inpatient admission will be changed to outpatient. Dr Romario Arizmendi Member UR Committee
[2022-05-07 21:11] LABS: Factor 5 Mutation NEGATIVE
[2022-05-08 10:22] LABS: Anti Cardiolipin Ab IgG <2.0 GPL-U/mL; Anti Cardiolipin Ab IgM <2.0 MPL-U/mL; Anti-Thrombin III Activity 85 % normal (80-135); B2 Glycoprotein IgG <2.0 U/mL (<20.0); B2 Glycoprotein IgM <2.0 U/mL (<20.0); PTT LA Screen 39 sec (<=40); Protein S Functional(Activity) 77 % (70-150)
== END 2022-05-03 11:40 | disposition home or self-care (01) | DRG 176 ==
LOC: ED 21:25 → INTOOBSV 05-02 01:59 → 2N 05-02 01:59 → SUATTDRO 05-02 01:59 → 2N 05-02 09:00